=== PATIENT | female | born 1970 | race Caucasian/White ===

== ENCOUNTER 2017-03-06 10:34 | Outpatient (CLI) | payer OTHER ==
--- NOTE | 2017-03-06 12:22 | DIAGNOSTIC IMAGING REPORT ---
PROCEDURE: MR LUMBAR SPINE W/O CONTRAST INDICATION: LUMBAGO WITH SCIATICA, LEFT SIDE TECHNIQUE: Noncontrast T1, T2, and STIR sagittal images. T1 and T2 axial images. COMPARISON: None. FINDINGS: L1-2: Normal. L2-3: Normal. L3-4: Normal. L4-5: Normal. L5-S1: Mild central bulging disc at L5-S1. Slightly greater on the left. IMPRESSION: 1. Mild central bulging disc at L5-S1.
== END 2017-03-06 23:00 ==
LOC: MRI SRH 10:34
DX: M51.27 Other intervertebral disc displacement, lumbosacral region (principal)

== ENCOUNTER 2017-03-23 06:31 | Emergency (ER) | payer OTHER ==
--- NOTE | 2017-03-23 07:56 | DIAGNOSTIC IMAGING REPORT ---
PROCEDURE: XR CERVICAL SPINE 2 OR 3 VIEW INDICATION: NECK PAIN TECHNIQUE: Three views. COMPARISON: Compare radiographs of the cervical spine on 06/17/2016. FINDINGS: Status post C5-6 discectomy with metal disc spacer. Straightening of the cervical lordosis. Moderate degenerative changes of the cervical facet joints. No change. No evidence of acute process. IMPRESSION: 1. Status post C5-6 discectomy with metal disc spacer. 2. Moderate degenerative change of the cervical spine. 3. No significant change.
--- NOTE | 2017-03-23 15:10 | ED CLINICAL REPORT ---
Clinical Report - Physicians/Mid Levels [facility] [address] [place] [address] 03/23/2017 6:31 Patient: KIERA LYNN Time Seen: 0635; initial patient contact. Arrived- By private vehicle. Historian- patient. HISTORY OF PRESENT ILLNESS Chief Complaint: NECK PAIN and BACK PAIN. It is described as being moderate in degree. It is described as being in the area of the left trapezius, left side of the cervical spine, cervical spine, left side of the upper thoracic spine and upper thoracic spine. It is described as being in the area of the right side of the cervical spine, right side of the upper thoracic spine and right trapezius. The quality is noted to be "pain". No radiation. Modifying factors- worsened by rotation of the head to the right or left or neck flexion. Not relieved by anything. Onset- about 2 1/2 days ago and it is still present (persistent). It was abrupt in onset. No bladder dysfunction, bowel dysfunction, sensory loss or motor loss. Patient notes an injury but denies injury to the head or chest. Mechanism of injury- (Wrestling w/ , hyperextended neck). Occurred at home. Similar symptoms previously: None. Recent medical care: Not recently seen/assessed. REVIEW OF SYSTEMS No headache, numbness or weakness. She has had back pain and neck pain. All systems otherwise negative, except as recorded above. PAST HISTORY Cervical Strain. Substance Abuse. Neck Pain. Headache. Back Pain. Pyelonephritis. UTI - Urinary Tract Infection. Chest Wall Pain. Tetanus Status. Gastroenteritis. Viral Disease. Immunizations. Depression. Anxiety Reaction. Myofascial Strain. Kidney Infection. ADDITIONAL SURGERIES: Adenoidectomy. Bladder surgery at age 11. Bladder Suspension. Cholecystectomy. Tonsillectomy. SOCIAL HISTORY Never smoker. No alcohol use or drug use. ADDITIONAL NOTES The nursing notes have been reviewed. PHYSICAL EXAM Vital Signs: 03/23/2017 06:34 BP: 153/79. HR: 88. RR: 28. O2 saturation: 99%. Temp: 97.5 F. Pain level now: 09/01. Have been reviewed. Hypertensive. Heart rate normal. Tachypneic. Temperature normal. Oxygen saturation normal. Appearance: Alert. No acute distress. ENT: Pharynx normal. Neck: Moderate pain in the entire posterior neck upon turning the head to the right, turning the head to the left, lifting the head, flexing the neck and extending the neck. Moderate muscle spasm of the right and left posterior neck. No vertebral tenderness. Moderate soft tissue tenderness in the right upper, mid and lower neck area and left upper, mid and lower neck area. No meningeal signs. Back: Moderate soft tissue tenderness in the right upper and left upper thoracic area. Moderate muscle spasm present in the right upper and left upper thoracic area. No vertebral point tenderness. Skin: Normal skin color. Normal skin turgor. LABS, X-RAYS, AND EKG C-Spine X-rays: Moderate straightening of the cervical spine. Degenerative joint disease. (C6 artificial disc). Views: 3 view C-spine series. Technique: good. The X-rays were independently viewed by me and interpreted contemporaneously by me. Prior films were not available for comparison. Interpretation time: 07:35. PROGRESS AND PROCEDURES Disposition: Discharged home in good and improved condition. Condition: good. CLINICAL IMPRESSION Acute cervical strain. INSTRUCTIONS Your Current Medications: STOP TAKING THE FOLLOWING MEDICATIONS: Ibuprofen Oral. CONTINUE TAKING THE FOLLOWING MEDICATIONS: Baclofen External. TraZODone HCl Oral. Prescription Medications: Baclofen 10 mg: take 1 orally every 8 hours. Dispense twenty (20). No refills. Diclofenac 50 mg tablets: take 1 tablet orally every 8 hours as needed for pain or stiffness. Dispense thirty (30). No refill. Follow-up: Follow up with your doctor in about two days. Call for an appointment. Screening today revealed the patient's blood pressure to be in the hypertensive range. The patient should follow up with a primary care provider for blood pressure management. (Electronically signed by Jason Mariscal Dr. 03/23/2017 8:30)
--- NOTE | 2017-03-23 15:10 | ED ORDER SUMMARY ---
..... Patient: KIERA LYNN OrderSheet [facility] VisitID: [id number] [place] [address] 46y, F Registration Date/Time: 03/23/2017 ORDER SHEET Weight: 54.4 kg (stated) Allergies: Azithromycin, Erythromycin, Gabapentin, Meperidine, Sulfa Antibiotics GENERAL ORDERS: Cervical Spine 2 or 3V Urgent (06:55 03/23/2017 Luis E Handley) (Ack 6:59 Dena ER Compliance Assistant) (7:56 Jc) MEDICATION ORDERS: Toradol IM 60 mg (NOW) (06:55 03/23/2017 Luis E Handley) (7:08 Rhina R.N.) Diazepam IM 5 mg (HIGH ALERT MEDICATION, NOW) (07:48 03/23/2017 Luis E Handley) (8:11 Elana R.N.) IV FLUIDS: ORDER SHEET NOTES: [Electronically signed by Jason Mariscal Dr. (08:30 03/23/2017)] [Electronically signed by Lavinia Vanessa R.N. (10:09 03/23/2017)] [Electronically locked/signed by Lavinia Vanessa R.N. (10:03/23/2017)]
--- NOTE | 2017-03-23 15:10 | ED NURSING NOTES ---
Clinical Report - Nurses [facility] [address] [place] [address] 03/23/2017 6:31 Patient: KIERA LYNN TRIAGE Triage time 06:34. Acuity: LEVEL 4. Chief Complaint: NECK PAIN and BACK PAIN. Alert. REJI COMA SCORE: Reji Coma Scale: 15- eyes open spontaneously (4); best verbal response- oriented x 4 (5); best motor response- obeys commands (6). --06:40 Sergio Markham R.N. 06:34 03/23/17. BP: 153/79. HR: 88. RR: 28 (unlabored). O2 saturation: 99% on room air. Temp: 97.5 F. Pain level now: 09/01. Additional comments: pt crying. --06:40 Sergio Markham R.N. Weight: 54.4 kg stated. Height/Length: 108 inches Per Patient. BMI: 7.2. --06:35 Sergio Markham R.N. Medications Baclofen External. --06:36 Sergio Markham R.N. TraZODone HCl Oral. --06:36 Sergio Markham R.N. Ibuprofen Oral. --06:36 Sergio Markham R.N. Allergies Azithromycin. Erythromycin. Gabapentin. Meperidine. Sulfa Antibiotics. --06:36 Sergio Markham R.N. History Arrived by private vehicle. Historian: patient. Accompanied by friend. This is a recurrent problem. (3 days ago). ( pt states that she was "wrestling around" on thursday "and heard a crack" and has had back and neck pain since then). PAST MEDICAL HX: Denies current . ( denies ). SOCIAL HX: Never smoker. No alcohol use or drug use. ( chews "half a can day". denies hi/si). SELF HARM ASSESSMENT: A self harm assessment was performed. The patient answered "no" to the question "Do you have thoughts of harming or killing yourself?" and "Are you here because you tried to hurt yourself?". --06:40 Sergio Markham R.N. PROBLEMS: Cervical Strain. Substance Abuse. Neck Pain. Headache. Back Pain. Pyelonephritis. UTI - Urinary Tract Infection. Chest Wall Pain. Tetanus Status. Gastroenteritis. Viral Disease. Immunizations. Depression. Anxiety Reaction. Myofascial Strain. LNMP - Last Normal Menstrual Period. Kidney Infection. --06:36 Sergio Markham R.N. ADDITIONAL SURGERIES: Adenoidectomy. Bladder surgery at age 11. Bladder Suspension. Cholecystectomy. Tonsillectomy. --06:37 Sergio Markham R.N. Interventions ID band on patient. To room. --06:40 Sergio Markham R.N. PHYSICAL ASSESSMENT Ambulatory to room. GENERAL / NEURO / PSYCH: Alert. Oriented X 4. Appears in pain. RESPIRATORY: Respirations not labored. BACK: ( r/t pain). Limited ROM of the neck and back. Abnormal ROM of neck and back. --06:40 Sergio Markham R.N. NURSING PROGRESS NOTES Pulse oximeter and NIBP monitor placed on patient. Head of bed elevated. Reassurance given. Two patient identifiers checked. Call light placed in reach. Side rails up x 1. Bed placed in lowest position. Brakes of bed on. Patient ready for evaluation- chart flagged. Patient waiting for evaluation. --06:41 Sergio Markham R.N. ( Patient report given to YUDELKA Kate). --07:01 Sergio Markham R.N. 07:08 03/23/2017 Toradol (Ketorolac Tromethamine) IM 60 mg given. Given in the right gluteus veronika. Allergies verified and confirmed 5 rights. --07:08 Sergio Markham R.N. 08:11 03/23/2017 Diazepam (Diazepam) IM 5 mg given. Given in the left gluteus veornika. Allergies verified, confirmed 5 rights and sedative warning given to the patient and patient's skeiner. --08:11 Lavinia Vanessa R.N. 08:19 03/23/17. BP: 131/79. HR: 74. RR: 18. O2 saturation: 98%. Temp: 97.8 F. Pain level now 07/02. --08:20 Lavinia Vanessa R.N. DISPOSITION / DISCHARGE Departure time: :Mar 23 2017. Condition at departure: improved. No learning barriers present. Discharge instructions provided and reviewed with the patient. Reviewed warnings. Reviewed medication(s). Treatments reviewed. Reviewed referrals. Patient verbalized understanding. Written instructions provided in [place]. The patient was discharged home and accompanied by skeiner. She left the Emergency Department ambulatory. Driving (Pt walking). --08:32 Lavinia Vanessa R.N. 08:19 03/23/17. BP: 131/79. HR: 74. RR: 18. O2 saturation: 98%. Temp: 97.8 F. Pain level now 07/02. --08:32 Lavinia Vanessa R.N. Locked/Released at 03/23/2017 10:09 by Lavinia Vanessa R.N.
--- NOTE | 2017-03-23 15:10 | ED ORDER SUMMARY ---
..... Patient: KIERA LYNN OrderSheet [facility] VisitID: [id number] [place] [address] 46y, F Registration Date/Time: 03/23/2017 ORDER SHEET Weight: 54.4 kg (stated) Allergies: Azithromycin, Erythromycin, Gabapentin, Meperidine, Sulfa Antibiotics GENERAL ORDERS: Cervical Spine 2 or 3V Urgent (06:55 03/23/2017 Luis E Handley) (Ack 6:59 Dena ER Moderate Needs Teacher) (7:56 Jc) MEDICATION ORDERS: Toradol IM 60 mg (NOW) (06:55 03/23/2017 Luis E Handley) (7:08 Rhina R.N.) Diazepam IM 5 mg (HIGH ALERT MEDICATION, NOW) (07:48 03/23/2017 Luis E Handley) (8:11 Elana R.N.) IV FLUIDS: ORDER SHEET NOTES: [Electronically signed by Jason Mariscal Dr. (08:30 03/23/2017)] [Electronically signed by Lavinia Vanessa R.N. (10:09 03/23/2017)] [Electronically locked/signed by Lavinia Vanessa R.N. (10:03/23/2017)]
--- NOTE | 2017-03-23 15:10 | ED NURSING NOTES ---
Clinical Report - Nurses [facility] [address] [place] [address] 03/23/2017 6:31 Patient: KIERA LYNN TRIAGE Triage time 06:34. Acuity: LEVEL 4. Chief Complaint: NECK PAIN and BACK PAIN. Alert. REJI COMA SCORE: Reji Coma Scale: 15- eyes open spontaneously (4); best verbal response- oriented x 4 (5); best motor response- obeys commands (6). --06:40 Sergio Markham R.N. 06:34 03/23/17. BP: 153/79. HR: 88. RR: 28 (unlabored). O2 saturation: 99% on room air. Temp: 97.5 F. Pain level now: 09/01. Additional comments: pt crying. --06:40 Sergio Markham R.N. Weight: 54.4 kg stated. Height/Length: 108 inches Per Patient. BMI: 7.2. --06:35 Sergio Markham R.N. Medications Baclofen External. --06:36 Sergio Markham R.N. TraZODone HCl Oral. --06:36 Sergio Markham R.N. Ibuprofen Oral. --06:36 Sergio Markham R.N. Allergies Azithromycin. Erythromycin. Gabapentin. Meperidine. Sulfa Antibiotics. --06:36 Sergio Markham R.N. History Arrived by private vehicle. Historian: patient. Accompanied by friend. This is a recurrent problem. (3 days ago). ( pt states that she was "wrestling around" on thursday "and heard a crack" and has had back and neck pain since then). PAST MEDICAL HX: Denies current . ( denies ). SOCIAL HX: Never smoker. No alcohol use or drug use. ( chews "half a can day". denies hi/si). SELF HARM ASSESSMENT: A self harm assessment was performed. The patient answered "no" to the question "Do you have thoughts of harming or killing yourself?" and "Are you here because you tried to hurt yourself?". --06:40 Sergio Markham R.N. PROBLEMS: Cervical Strain. Substance Abuse. Neck Pain. Headache. Back Pain. Pyelonephritis. UTI - Urinary Tract Infection. Chest Wall Pain. Tetanus Status. Gastroenteritis. Viral Disease. Immunizations. Depression. Anxiety Reaction. Myofascial Strain. LNMP - Last Normal Menstrual Period. Kidney Infection. --06:36 Sergio Markham R.N. ADDITIONAL SURGERIES: Adenoidectomy. Bladder surgery at age 11. Bladder Suspension. Cholecystectomy. Tonsillectomy. --06:37 Sergio Markham R.N. Interventions ID band on patient. To room. --06:40 Sergio Markham R.N. PHYSICAL ASSESSMENT Ambulatory to room. GENERAL / NEURO / PSYCH: Alert. Oriented X 4. Appears in pain. RESPIRATORY: Respirations not labored. BACK: ( r/t pain). Limited ROM of the neck and back. Abnormal ROM of neck and back. --06:40 Sergio Markham R.N. NURSING PROGRESS NOTES Pulse oximeter and NIBP monitor placed on patient. Head of bed elevated. Reassurance given. Two patient identifiers checked. Call light placed in reach. Side rails up x 1. Bed placed in lowest position. Brakes of bed on. Patient ready for evaluation- chart flagged. Patient waiting for evaluation. --06:41 Sergio Markham R.N. ( Patient report given to YUDELKA Kate). --07:01 Sergio Markham R.N. 07:08 03/23/2017 Toradol (Ketorolac Tromethamine) IM 60 mg given. Given in the right gluteus veronika. Allergies verified and confirmed 5 rights. --07:08 Sergio Markham R.N. 08:11 03/23/2017 Diazepam (Diazepam) IM 5 mg given. Given in the left gluteus veronika. Allergies verified, confirmed 5 rights and sedative warning given to the patient and patient's sales order coordinator. --08:11 Lavinia Vanessa R.N. 08:19 03/23/17. BP: 131/79. HR: 74. RR: 18. O2 saturation: 98%. Temp: 97.8 F. Pain level now 07/02. --08:20 Lavinia Vanessa R.N. DISPOSITION / DISCHARGE Departure time: :Mar 23 2017. Condition at departure: improved. No learning barriers present. Discharge instructions provided and reviewed with the patient. Reviewed warnings. Reviewed medication(s). Treatments reviewed. Reviewed referrals. Patient verbalized understanding. Written instructions provided in [place]. The patient was discharged home and accompanied by sales order coordinator. She left the Emergency Department ambulatory. Driving (Pt walking). --08:32 Lavinia Vanessa R.N. 08:19 03/23/17. BP: 131/79. HR: 74. RR: 18. O2 saturation: 98%. Temp: 97.8 F. Pain level now 07/02. --08:32 Lavinia Vanessa R.N. Locked/Released at 03/23/2017 10:09 by Lavinia Vanessa R.N.
--- NOTE | 2017-03-23 15:12 | ED MAR SUMMARY ---
..... Medication Administration Record [facility] [address] [place] [address] Patient: KIERA LYNN Visit ID: [id number] 46y, F Weight: 54.4 kg Height/Length: 108 in BMI: 7.2 ALLERGIES: Azithromycin, Erythromycin, Gabapentin, Meperidine, Sulfa Antibiotics Given 07:08 03/23/2017 Sergio Markham REllis. Medication Administered: TORADOL [IM] (KETOROLAC TROMETHAMINE), Dose: 60 mg IM. Medication Ordered: Toradol IM 60 mg (NOW). Given 08:11 03/23/2017 Lavinia Vanessa RBeverly Medication Administered: DIAZEPAM [IM] (DIAZEPAM), Dose: 5 mg IM. Medication Ordered: Diazepam IM 5 mg (HIGH ALERT MEDICATION, NOW).
--- NOTE | 2017-03-23 15:12 | ED MED RECONCILIATION SUMMARY ---
Patient: KIERA LYNN Medication Reconciliation Report [facility] VisitID: [id number] [place] [address] 46y, F Registration Date/Time: 03/23/2017 Weight: 54.4 kg Height/Length: 108 in. BMI: 7.2 ALLERGIES: Azithromycin, Erythromycin, Gabapentin, Meperidine, Sulfa Antibiotics The patient's Home Medications are listed below: STOP TAKING THE FOLLOWING MEDICATIONS: Ibuprofen Oral CONTINUE TAKING THE FOLLOWING MEDICATIONS: Baclofen External TraZODone HCl Oral The source(s) of the original Home Medication information: Not obtained. The following Medications were given to the patient in the Emergency Department: Toradol [IM] IM 60 mg, administered: 03/23/2017 7:08:00 AM Diazepam [IM] IM 5 mg, administered: 03/23/2017 8:11:00 AM The following Medications were prescribed to the patient: Baclofen 10 mg: take 1 orally every 8 hours. Dispense twenty (20). No refills. -- Jason Mariscal Dr. Diclofenac 50 mg tablets: take 1 tablet orally every 8 hours as needed for pain or stiffness. Dispense thirty (30). No refill. -- Jason Mariscal Dr.
--- NOTE | 2017-03-23 15:12 | ED DISCHARGE INSTRUCTIONS ---
Patient: KIERA LYNN General Instructions [facility] VisitID: [id number] [place] [address] 46y, F Registration Date/Time: 03/23/2017 Acute cervical strain. INSTRUCTIONS Your Current Medications: STOP TAKING THE FOLLOWING MEDICATIONS: Ibuprofen Oral. CONTINUE TAKING THE FOLLOWING MEDICATIONS: Baclofen External. TraZODone HCl Oral. Prescription Medications: Baclofen 10 mg: take 1 orally every 8 hours. Dispense twenty (20). No refills. Diclofenac 50 mg tablets: take 1 tablet orally every 8 hours as needed for pain or stiffness. Dispense thirty (30). No refill. Follow-up: Follow up with your doctor in about two days. Call for an appointment. Screening today revealed the patient's blood pressure to be in the hypertensive range. The patient should follow up with a primary care provider for blood pressure management. ADDITIONAL INFORMATION Neck Sprain Or Strain A sudden force that causes turning or bending of the neck (such as in a car accident) can stretch or tear muscles (strain) and ligaments (sprain) and cause neck pain. Sometimes neck pain occurs after a simple awkward movement. In either case, muscle spasm is commonly present and contributes to the pain. Unless you had a forceful physical injury (for example, a car accident or fall), X-rays are usually not ordered for the initial evaluation of neck pain. If pain continues and dose not respond to medical treatment, X-rays and other tests may be performed at a later time. Home care The following guidelines will help you care for your injury at home: You may feel more soreness and spasm the first few days after the injury. Reduce your activity level until symptoms begin to improve. When lying down, use a comfortable pillow that supports the head and keeps the spine in a neutral position. The position of the head should not be tilted forward or backward. Use ice packs (ice in a plastic bag, wrapped in a towel) to treat acute pain. Apply for 20 minutes every 24 hours during the first two days. Then, begin local heat (hot shower, hot bath or heating pad) andmassageto reduce muscle spasm. Some patients feel best alternating hot and cold treatments, or just staying with one method only. Do what feels the best to you and gives the most relief. You may use acetaminophen or ibuprofen to control pain, unless another pain medicine was prescribed.If you have chronic liver or kidney disease or ever had a stomach ulcer or GI bleeding, talk with your doctor before using these medicines. Follow-up care Follow up with your physician or this facility if your symptoms do not show signs of improvement. Physical therapy may be needed. If you had X-rays today, they didnt show any broken bones, breaks, or fractures. Sometimes fractures dont show up on the first X-ray. Bruises and sprains can sometimes hurt as much as a fracture. These injuries can take time to heal completely. If your symptoms dont improve or they get worse, talk with your doctor. You may need a repeat X-ray. When to seek medical care Get prompt medical attention if any of the following occur: Pain becomes worse or spreads into your arms Weakness or numbness in one or both arms You have been given the following additional information: Neck Sprain/Strain (Electronically signed by Jason Mariscal Dr. 03/23/2017 8:30)
--- NOTE | 2017-03-23 15:12 | ED MAR SUMMARY ---
..... Medication Administration Record [facility] [address] [place] [address] Patient: KIERA LYNN Visit ID: [id number] 46y, F Weight: 54.4 kg Height/Length: 108 in BMI: 7.2 ALLERGIES: Azithromycin, Erythromycin, Gabapentin, Meperidine, Sulfa Antibiotics Given 07:08 03/23/2017 Sergio Markham REllis. Medication Administered: TORADOL [IM] (KETOROLAC TROMETHAMINE), Dose: 60 mg IM. Medication Ordered: Toradol IM 60 mg (NOW). Given 08:11 03/23/2017 Lavinia Vanessa RBeverly Medication Administered: DIAZEPAM [IM] (DIAZEPAM), Dose: 5 mg IM. Medication Ordered: Diazepam IM 5 mg (HIGH ALERT MEDICATION, NOW).
--- NOTE | 2017-03-23 15:12 | ED MED RECONCILIATION SUMMARY ---
Patient: KIERA LYNN Medication Reconciliation Report [facility] VisitID: [id number] [place] [address] 46y, F Registration Date/Time: 03/23/2017 Weight: 54.4 kg Height/Length: 108 in. BMI: 7.2 ALLERGIES: Azithromycin, Erythromycin, Gabapentin, Meperidine, Sulfa Antibiotics The patient's Home Medications are listed below: STOP TAKING THE FOLLOWING MEDICATIONS: Ibuprofen Oral CONTINUE TAKING THE FOLLOWING MEDICATIONS: Baclofen External TraZODone HCl Oral The source(s) of the original Home Medication information: Not obtained. The following Medications were given to the patient in the Emergency Department: Toradol [IM] IM 60 mg, administered: 03/23/2017 7:08:00 AM Diazepam [IM] IM 5 mg, administered: 03/23/2017 8:11:00 AM The following Medications were prescribed to the patient: Baclofen 10 mg: take 1 orally every 8 hours. Dispense twenty (20). No refills. -- Jason Mariscal Dr. Diclofenac 50 mg tablets: take 1 tablet orally every 8 hours as needed for pain or stiffness. Dispense thirty (30). No refill. -- Jason Mariscal Dr.
== END 2017-03-23 08:40 | disposition home or self-care (01) ==
LOC: ED SRH 06:31
DX: S16.1XXA Strain of muscle, fascia and tendon at neck level, initial encounter (principal); X58.XXXA Exposure to other specified factors, initial encounter; Y93.72 Activity, wrestling; Y92.019 Unspecified place in single-family (private) house as the place of occurrence of the external cause; Y99.9 Unspecified external cause status; Z88.1 Allergy status to other antibiotic agents; Z88.5 Allergy status to narcotic agent; Z88.8 Allergy status to other drugs, medicaments and biological substances

== ENCOUNTER 2017-05-08 09:15 | Outpatient (CLI) | payer OTHER ==
--- NOTE | 2017-05-08 11:35 | DIAGNOSTIC IMAGING REPORT ---
PROCEDURE: MG BILATERAL SCREENING W/CAD INDICATION: Screening. Family history breast carcinoma (aunt). TECHNIQUE: Bilateral CC and MLO digital views. COMPARISON: Compared to 05/07/2016 and 05/07/2015. FINDINGS: Computer-aided detection applied. Mildly dense and nodular. No change. IMPRESSION: 1. Negative mammogram RESULT CODE: 1- Negative. A. A negative report should not delay biopsy if a dominant or clinically suspicious mass is present. 10-15% of cancers are not identified by x-ray. B. A negative report may reinforce clinical impression. C. Adenosis and dense breasts may obscure an underlying neoplasm. D. False positive reports average 6-10%. E.. A yearly screening mammogram is recommended. A reminder letter will be scheduled.
== END 2017-05-08 23:00 | disposition home or self-care (01) ==
LOC: MAM SRH 09:15
DX: Z12.31 Encounter for screening mammogram for malignant neoplasm of breast (principal); Z80.3 Family history of malignant neoplasm of breast